=== PATIENT | male | born 1935 ===

== ENCOUNTER 2020-03-17 14:46 | Outpatient (CLI) | payer OTHER | END 2020-03-17 15:55 | disposition home or self-care (01) | LOC: PPH VACUNA 14:46 | PROVIDERS: ATTEND Emergency Medicine Pediatric Emergency Medicine | DX: Z23 Encounter for immunization (principal) ==

== ENCOUNTER → 2020-04-07 07:00 | Outpatient (CLI) | payer OTHER | END | disposition home or self-care (01) | LOC: PPH VACUNA 07:00 | PROVIDERS: ATTEND Emergency Medicine Pediatric Emergency Medicine | DX: Z23 Encounter for immunization (principal) ==

== ENCOUNTER 2022-04-07 07:57 | Outpatient (CLI) | payer OTHER | END 2022-04-07 08:08 | disposition home or self-care (01) | LOC: RX STUDY 07:57 | DX: R13.12 Dysphagia, oropharyngeal phase (principal) ==